=== PATIENT | female | born 1940 | race Caucasian/White ===

== ENCOUNTER → 2019-04-18 10:27 | Outpatient (CLI) | payer BC, SELFPAY ==
--- NOTE | ~2019-04-18 | MM_ITS ---
EXAMINATION: MM screening amisha BI w joesph HISTORY: Screening mammogram TECHNIQUE: Craniocaudal and mediolateral oblique 3-D tomosynthesis images were obtained and synthetic 2-D images were generated. CAD analysis was submitted and interpreted. COMPARISON: 11/19/2017, 03/28/2016 bilateral digital screening mammogram examinations BREAST PARENCHYMAL COMPOSITION: The breasts are heterogeneously dense, which may obscure small masses . FINDINGS: There is no evidence of suspicious mass, calcification, or architectural distortion to sugg est malignancy in either breast. There has been no suspicious interval change. IMPRESSION: 1. No mammographic evidence of malignancy. 2. Recommend routine screening mammography in one year. BI-RADS Category 1: Negative Reviewed, dictated and finalized at location A. L STRUCTURE OPERATOR
== END ==
PROVIDERS: PCP Family Medicine; Visit Provider Nurse Practitioner Family
DX: Z12.31 Encounter for screening mammogram for malignant neoplasm of breast (principal)
CPT/HCPCS: 77063; 77067

== ENCOUNTER 2020-03-22 11:47 | Outpatient (CLI) | payer BC, SELFPAY ==
--- NOTE | ~2020-03-22 | XR_ITS ---
EXAMINATION: XR knee LT 3V DATE: 03/22/2020 12:44 INDICATION: Left knee edema. Arthritis. TECHNIQUE: 3 views of left knee were obtained. COMPARISON: Left knee radiographs 12/30/17 FINDINGS: Bone alignment is normal. No fracture. There is severe osteoarthritis of medial compartment , mild osteoarthritis of lateral compartment, and moderate osteoarthritis of patellofemoral compartme nt. There is a small knee joint effusion. IMPRESSION: 1. Severe left knee osteoarthritis. 2. Small left knee joint effusion. Reviewed, dictated and finalized at location A. L INSTALLER
--- NOTE | ~2020-03-22 | US_ITS ---
EXAMINATION: US venous doppler [facility] EXAM DATE: 03/22/2020 12:27 INDICATION: Left leg edema. TECHNIQUE: Multiple grayscale, color flow and Doppler images of the left lower extremity deep venous system were obtained and reviewed. Comparison is made to prior examination from 05/27/2012. FINDINGS: The left common femoral, femoral and profunda veins demonstrate normal color flow, respirat ory variation, augmentation and compressibility. Compressibility, color flow confirmed within the le ft popliteal, posterior tibial, peroneal, and greater saphenous veins. IMPRESSION: 1. No left lower extremity deep venous thrombosis. Reviewed, dictated and finalized at location B. S MARKETING MANAGER
== END 2020-03-22 11:48 | disposition home or self-care (01) ==
PROVIDERS: PCP Family Medicine; Visit Provider Family Medicine
DX: R60.0 Localized edema (principal); M17.12 Unilateral primary osteoarthritis, left knee; M25.462 Effusion, left knee
CPT/HCPCS: 73562; 93971

== ENCOUNTER → 2021-08-29 11:14 | Outpatient (CLI) | payer BC, SELFPAY ==
--- NOTE | ~2021-08-29 | DEXA_ITS ---
Bone Density Report Name: TREMAINE ARMANDO Age: 81 Sex: Female Ethnicity: White Date of : 1940 Indication: postmenopausal; screening for osteoporosis; height loss; Referring Provider: CHAIM LUNA Study: Bone densitometry was performed. Exam Date: August 29, 2021 Accession number: [id number] Bone Density: Region BMD T-score Z-score Classification AP Spine (L1, L2, L3) 0.988 -0.3 2.3 Normal Femoral Neck (Left) 0.675 -1.6 0.7 Osteopenia Total Hip (Left) 0.823 -1.0 1.1 Normal World Health Organization criteria for BMD impression classify patients as: Normal (T-score at or above -1.0), Osteopenia (T-score between -1.0 and -2.5), or Osteoporosis (T-score at or below -2.5). 10-year Fracture Risk(1): Major Osteoporotic Fracture 13% Hip Fracture 3.1% Reported Risk Factors: [place] (), Neck BMD=0.675, BMI=31.2 (1) FRAX(R) Version 3.08. Fracture probability calculated for an untreated patient. Fracture probability may be lower if the patient has received treatment. Previous Exams: Region Exam Age BMD T-score BMD Change BMD Change Date g/cm2 vs Baseline vs Previous AP Spine(L1, L2, L3) 08/29/2021 81 0.988 -0.3 -0.019 0.020 11/19/2017 77 0.968 -0.5 -0.040* -0.040* 07/26/2014 74 1.008 -0.1 Total Hip(Left) 08/29/2021 81 0.823 -1.0 -0.058* -0.010 11/19/2017 77 0.832 -0.9 -0.048* -0.048* 07/26/2014 74 0.880 -0.5 *Denotes significance at 95% confidence level, LSC for AP Spine = 0.022 g/cm2, LSC for Total Hip = 0.027 g/cm2 Clinical Information Provided by Patient: Has used the following medications: Vitamin D, Calcium Patient maximum height was 63.5 Menopause Age: 53 No regular weight bearing exercise Onset of menses at age 17 Number of children 1 Impression: The patient has low bone mass, based on the Left Femoral Neck T-score. The patient has an estimated ten-year risk of hip fracture of 3.1% and an estimated ten-year risk of major fracture of 13%, based on the WHO FRAX algorithm. No significant bone loss was observed. Discussion: BONE DENSITY IS LOW AT ONE OR MORE SKELETAL SITES. THE PATIENT'S BMD AND CLINICAL RISK FACTORS CONTRIBUTE TO THIS PATIENT'S INCREASED RISK OF FRACTURE. This patient's lowest T-score is low at one or more skeletal sites. It meets the World Health Organization's (WHO) criteria for ?low bone mass? (T-score between -1.0 and -2.5). The patient's 10-year risk of hip fracture as calculated by
== END ==
PROVIDERS: PCP Family Medicine; Visit Provider Family Medicine
DX: Z78.0 Asymptomatic menopausal state (principal); M85.852 Other specified disorders of bone density and structure, left thigh
CPT/HCPCS: 77080

== ENCOUNTER → 2021-09-26 16:13 | Outpatient (CLI) | payer BC, SELFPAY ==
--- NOTE | ~2021-09-26 | MM_ITS ---
EXAMINATION: MM screening amisha BI w joesph HISTORY: Screening TECHNIQUE: Craniocaudal and mediolateral oblique 3-D tomosynthesis images were obtained and synthetic 2-D images were generated. CAD analysis was submitted and interpreted. COMPARISON: Comparison to multiple prior studies sequentially, with oldest reviewed study dated 01/08. BREAST PARENCHYMAL COMPOSITION: The breasts are heterogeneously dense, which may obscure small masses . FINDINGS: There is a new focal asymmetry is posterior to the nipple on CC view, not well demonstrated on MLO view. The left breast is stable without evidence for malignancy. IMPRESSION: 1. Developing right breast asymmetry. 2. Additional mammographic views and possible breast ultrasound are recommended. BI-RADS Category 0: Incomplete: Needs additional imaging evaluation. Reviewed, dictated and finalized at location A. IMPRESSION: 1. Developing right breast asymmetry. 2. Additional mammographic views and possible breast ultrasound are recommended . BI-RADS Category 0: Incomplete: Needs additional imaging evaluation.
== END ==
PROVIDERS: PCP Family Medicine; Visit Provider Family Medicine
DX: Z12.31 Encounter for screening mammogram for malignant neoplasm of breast (principal); R92.8 Other abnormal and inconclusive findings on diagnostic imaging of breast
CPT/HCPCS: 77063; 77067

== ENCOUNTER 2021-10-08 12:54 | Outpatient (CLI) | payer BC, SELFPAY ==
--- NOTE | ~2021-10-08 | MMUS_ITS ---
EXAMINATION: MM diagnostic amisha RT w joesph, US breast RT complete HISTORY: Follow-up right breast asymmetry TECHNIQUE: Additional 3-D tomosynthesis images of the right breast were performed and synthetic 2-D i mages were generated. CAD analysis was submitted and interpreted. High resolution complete right r[facility] st ultrasound was performed. COMPARISON: 09/26/2021 BREAST PARENCHYMAL COMPOSITION: The breasts are heterogenously dense, which may obscure small masses FINDINGS: MAMMOGRAPHIC FINDINGS: There are no suspicious masses, calcifications or architectural distortion in the right breast to sug gest malignancy. ULTRASOUND: Complete US of all 4 quadrants of the right breast and retroareolar region was reviewed. Normal heter ogeneous echotexture without focal solid or cystic mass. IMPRESSION: 1. No evidence for malignancy in the right breast. 2. Routine yearly screening mammogram and regular clinical breast examination are recommended. BI-RADS Category 1: Negative Reviewed, dictated and finalized at location A. IMPRESSION: 1. No evidence for malignancy in the right breast. 2. Routine yearly screening mammogram and regular clinical breast examination a re recommended. BI-RADS Category 1: Negative
== END 2021-10-08 12:55 | disposition home or self-care (01) ==
PROVIDERS: PCP Family Medicine; Visit Provider Physician Assistant
DX: R92.8 Other abnormal and inconclusive findings on diagnostic imaging of breast (principal)
CPT/HCPCS: 76641; 77061; 77065; G0279

== ENCOUNTER 2022-04-10 09:27 | Outpatient (CLI) | payer BC, SELFPAY ==
--- NOTE | ~2022-04-10 | NM_ITS ---
EXAMINATION: NM yannick stress w perfusion DATE: 04/10/2022 11:58 INDICATION: Other forms of dyspnea TECHNIQUE: Rest images were obtained following intravenous administration of 9.0 mCi Tc99m tetrofosmi n (Myoview). The patient was infused intravenously with Lexiscan (Regadenoson). Then, 28.8 mCi Tc99m tetrofosmin (Myoview) was administered intravenously, and stress images were obtained. Data was recon structed into short axis and horizontal and vertical long axis SPECT images. Gated SPECT images were also obtained. COMPARISON: None. FINDINGS: There is no definite reversible or fixed perfusion abnormality to suggest ischemia or infar ction. There is normal left ventricular chamber size, wall motion and ejection fraction. Left ventr icular ejection fraction measures >70%. IMPRESSION: 1. Normal myocardial perfusion at rest and during stress. 2. Left ventricular ejection fraction measuring >70%. Reviewed, dictated and finalized at location A. LE SCM CONSULTANT
--- NOTE | 2022-04-10 10:19 | EST_ITS ---
Patient Info Name: Amanda Cortes Age: 81 years : 1940 Gender: Female Ht: 52 in Wt: 170 lbs BSA: 1.74 m2 HR: 59 bpm BP: 177 / 81 mmHg Heart Rhythm: Sinus Rhythm Exam Date: 04/10/2022 10:40 AM Exam Location: [facility] Stress Patient Status: Outpatient Admit Date: 04/10/2022 Staff Ordering Physician: Cosme Og DO Attending Provider: Cosme Og DO Exercise Technologist: Urmila Shaw CT Exam Type: CA stress yannick w NM Study Info Indications Z01.810 - Encounter for preprocedural cardiovascular examination R06.09 - Other forms of dyspnea A regadenoson stress test was performed. Summary 1. 1. Negative lexiscan stress test for ischemic ST changes by ECG criteria. 2. 2. Baseline hypertension. 3. 3. Nuclear scan to follow and will be reported separately. Please correlate with it. 4. 4. Patient informed of the above results. Protocol: Lexiscan Stress ECG Details Stage: REST Duration (min): 2 min : 11 sec HR (bpm): 57 SBP (mmHg): 177 DBP (mmHg): 86 Stage: REST Duration (min): 8 min : 35 sec HR (bpm): 62 SBP (mmHg): 177 DBP (mmHg): 86 Stage: STAGE 1 Duration (min): 1 min : 0 sec HR (bpm): 81 SBP (mmHg): 177 DBP (mmHg): 86 Stage: RECOVERY Duration (min): 1 min : 0 sec HR (bpm): 94 SBP (mmHg): 174 DBP (mmHg): 66 Stage: RECOVERY Duration (min): 2 min : 0 sec HR (bpm): 79 SBP (mmHg): 174 DBP (mmHg): 66 Stage: RECOVERY Duration (min): 3 min : 0 sec HR (bpm): 78 SBP (mmHg): 174 DBP (mmHg): 66 Stage: RECOVERY Duration (min): 3 min : 30 sec HR (bpm): 76 SBP (mmHg): 169 DBP (mmHg): 65 Rest HR: 62 bpm Peak HR: 97 bpm Rest Sys BP: 177 mmHg Peak Sys BP: 174 mmHg Max Pred HR: 140 bpm % Max Pred HR: 69 % Target HR: 119 bpm Max RPP: 16,878 bpm*mmHg Termination Reason: Completed protocol Cardiac Symptoms: Shortness of breath Total Time: 1 min : 0 sec Rest Gonzalez BP: 86 mmHg Peak Gonzalez BP: 66 mmHg Total Dose: 0.4 mg Resting ECG Sinus rhythm, borderline T wave in high lateral leads. Stress ECG No ST changes. Arrhythmias None. Report Signatures
== END 2022-04-10 09:28 | disposition home or self-care (01) ==
PROVIDERS: PCP Family Medicine; Visit Provider Internal Medicine Cardiovascular Disease
DX: R06.09 Other forms of dyspnea (principal)
CPT/HCPCS: 78452; 93017; A9502; J2785

== ENCOUNTER 2022-07-10 11:07 | Outpatient (CLI) | payer BC, SELFPAY ==
--- NOTE | ~2022-07-10 | US_ITS ---
EXAMINATION: US venous doppler [facility] DATE: 07/10/2022 11:42 INDICATION: Left lower limb edema. TECHNIQUE: Grayscale ultrasound images without and with compression and Doppler ultrasound images of the left lower extremity veins were obtained. COMPARISON: Ultrasound 03/22/2020 FINDINGS: The visualized portions of left common femoral vein, profunda (deep) femoral vein, femoral vein, popl iteal vein, peroneal veins, posterior tibial veins, and greater saphenous vein outflow are patent. IMPRESSION: 1. No deep venous thrombosis. Reviewed, dictated and finalized at location A.
== END 2022-07-10 11:08 | disposition home or self-care (01) ==
PROVIDERS: PCP Family Medicine; Visit Provider Internal Medicine Cardiovascular Disease
DX: R60.0 Localized edema (principal)
CPT/HCPCS: 93971

== ENCOUNTER 2022-11-21 01:22 | Day surgery (SDC) | payer BC, SELFPAY ==
[2022-11-13 10:07] VITALS: BMI 31.2
--- NOTE | 2022-11-21 11:07 | WPDANESEPPF ---
Anes - Initial Pre Proc Eval Procedure: Operation Date: 11/21/22 13:30 Proposed Procedures p Colonoscopy - Lg Chung MD Date/Time: 11/21/22 11:07 Surgeon: Lg Chung MD Pre Op Diagnosis: other fecal abnormalities Patient Data Age: 82 Gender: F Height: 1.57 m Weight: 77.5 kg Allergies Allergy/AdvReac Type Severity Reaction Status Date / Time No Known Allergies Allergy Verified 11/21/22 12:13 Home Medications Medication Instructions Recorded Confirmed Type omega-3 fatty acids 1,000 mg 1,000 mg PO DAILY 04/18/19 11/13/22 History capsule (Fish Oil Concentrate) lisinopril 20 mg tablet 20 mg PO DAILY #90 tabs 03/21/22 11/13/22 Rx allopurinol 300 mg tablet 300 mg PO DAILY #90 tabs 10/15/22 11/13/22 Rx cholecalciferol (vitamin D3) 1,250 1,250 mcg PO WEEKLY #14 caps 10/15/22 11/13/22 Rx mcg (50,000 unit) capsule alendronate 70 mg tablet 70 mg PO WEEKLY 11/13/22 11/13/22 History rosuvastatin 10 mg tablet 10 mg PO DAILY 11/13/22 11/13/22 History Patient hx anesthesia problems: none Family hx anesthesia problems: none Results Review: All pre-operative results and documents have been reviewed as part of the pre-operative evaluation. 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 Low vitamin D level Mixed hyperlipidemia Surgical History Surgical History S/P total hip arthroplasty Family History Family History Mother Family history of Alzheimer's disease, Onset Age: 70 Patient's mother is Father Patient's father is Sibling Patient's brother is in good health Social History Social History Social History: Smoking status: Never smoker Second hand tobacco smoke exposure: No Alcohol intake: never Alcohol use details: rarely Substance use: never Substance use type: does not use Living arrangements: alone Occupation/Education: retired Gender identity (if verbalized by the patient): Female Sexual Orientation (if Verbalized by the Patient): Straight or Heterosexual Spiritual care concerns: No Anes - Eval Final PreProcedure Day of Procedure 11/21/22 11:07 Patient weight: obese Heart: regular rate and rhythm Lungs: clear to auscultation Airway: Mallampati scale class II Neurological: alert and oriented Last oral intake: >/= 8 hours ASA classification: III Emergent: no Anesthetic plan: proceed Anesthesia type and monitoring: general GIVS and standard monitoring Results Review: All pre-operative results and documents have been reviewed as part of the pre-operative evaluation. Informed Consent: The patient's anesthetic plan and its attendant risks and benefits were discussed with the patient/family/POA. Questions were solicited and answers provided to the satisfaction of the patient/family/POA.
[2022-11-21 12:16] VITALS: BP 156/84; PULSE 78; RESP 18; TEMP 36.1; O2SAT 98
[2022-11-21] MEDS: LACTATED RINGERS 1,000 ML 150 ML IV CONT (12:40)
--- NOTE | 2022-11-21 13:09 | PM.HPGS ---
History of Present Illness History of Present Illness Consent: Risks, benefits, and alternatives have been discussed and questions answered. Patient agrees to proceed with procedure. Chief complaint: other fecal abnormalities Narrative: Amanda Cortes is a 82 year old female here because + cologuard, had colonoscopy 10 years ago Review of Systems Constitutional: Constitutional: Denies headache(s) and Denies weakness Eyes: Eyes: Denies blurry vision ENT: Reports Normal hearing present, Denies headache(s) and Denies neck pain Cardiovascular: Cardiovascular: Denies chest pain and Denies dyspnea Respiratory: Respiratory: Denies dyspnea Gastrointestinal: Gastrointestinal: Reports no additional gastrointestinal complaints Genitourinary: Genitourinary: Denies dysuria Musculoskeletal: Musculoskeletal: Denies neck pain Integumentary/Breasts: Skin/Breast: Denies dry skin Neurologic: Reports Normal hearing present, Denies headache(s) and Denies weakness Psychiatric: Psychiatric: Denies anxiety Endocrine: Endocrine: Denies change in body appearance Hematologic/Lymphatic: Hematologic/Lymphatic: Denies easy bleeding Allergic/Immunologic: Allergic/Immunologic: Denies urticaria PMFSH Past Medical History Medical History (Updated 11/11/22 @ 07:22 by Francesca Pope MD) Benign essential HTN 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 Low vitamin D level Mixed hyperlipidemia Surgical History Surgical History S/P total hip arthroplasty Family History Family History Mother Family history of Alzheimer's disease, Onset Age: 70 Patient's mother is Father Patient's father is Sibling Patient's brother is in good health Social History Social History Social History: Smoking status: Never smoker Second hand tobacco smoke exposure: No Alcohol intake: never Alcohol use details: rarely Substance use: never Substance use type: does not use Living arrangements: alone Occupation/Education: retired Gender identity (if verbalized by the patient): Female Sexual Orientation (if Verbalized by the Patient): Straight or Heterosexual Spiritual care concerns: No Meds Home Medications and Allergies Home Medications Medication Instructions Recorded Confirmed Type omega-3 fatty acids 1,000 mg 1,000 mg PO DAILY 04/18/19 11/13/22 History capsule (Fish Oil Concentrate) lisinopril 20 mg tablet 20 mg PO DAILY #90 tabs 03/21/22 11/13/22 Rx allopurinol 300 mg tablet 300 mg PO DAILY #90 tabs 10/15/22 11/13/22 Rx cholecalciferol (vitamin D3) 1,250 1,250 mcg PO WEEKLY #14 caps 10/15/22 11/13/22 Rx mcg (50,000 unit) capsule alendronate 70 mg tablet 70 mg PO WEEKLY 11/13/22 11/13/22 History rosuvastatin 10 mg tablet 10 mg PO DAILY 11/13/22 11/13/22 History Allergies Allergy/AdvReac Type Severity Reaction Status Date / Time No Known Allergies Allergy Verified 11/21/22 12:13 Vital Signs Vital Signs - 24 hr 11/21/22 12:16 Temperature 97 F L Pulse Rate 78 Respiratory Rate 18 Blood Pressure 156/84 H Pulse Oximetry 98 Oxygen Delivery Room Air Exam Const: General: comfortable and no acute distress HENMT: Face/Nose/Sinus: Normal nares present Eyes: General: appearance normal, both eyes and all related structures Neck: Neck: no JVD Resp: Auscultation: clear to auscultation bilaterally Cardio: Rate: regular rate Rhythm: regular rhythm GI: Inspection: non-distended GI Palp: Yes Soft to palpation Skin: General skin exam: normal color Neuro: General: gait normal Speech: normal speech Extrem: General: normal to inspection Psych: Mental Status: mental status grossly normal Assessment and Plan Assessment and plan (1) Positive colorectal cancer screening u
[2022-11-21 13:28] VITALS: BP 109/48; PULSE 65; RESP 18; O2SAT 98
[2022-11-21 13:38] VITALS: BP 115/51; PULSE 61; RESP 18; O2SAT 96
[2022-11-21 13:45] VITALS: BP 128/55; PULSE 57; RESP 18; O2SAT 98
== END 2022-11-21 14:04 | disposition home or self-care (01) ==
PROVIDERS: PCP Family Medicine; Visit Provider Internal Medicine Gastroenterology
PROC: 0DJD8ZZ Inspection of Lower Intestinal Tract, Via Natural or Artificial Opening Endoscopic (ICD-10-PCS; CPT 45378; principal; 2022-11-21 13:30)
DX: R19.5 Other fecal abnormalities (principal); D12.0 Benign neoplasm of cecum; K57.30 Diverticulosis of large intestine without perforation or abscess without bleeding; I10 Essential (primary) hypertension; E78.2 Mixed hyperlipidemia; E55.9 Vitamin D deficiency, unspecified; E66.9 Obesity, unspecified; Z68.32 Body mass index [BMI] 32.0-32.9, adult
CPT/HCPCS: 45385; 88305; J2704; J7120

== ENCOUNTER 2023-03-13 14:39 | Outpatient (CLI) | payer BC, SELFPAY ==
--- NOTE | ~2023-03-13 | XR_ITS ---
XR hip RT min 2V DATE: 03/13/2023 14:52 INDICATION: Fall. TECHNIQUE: AP and lateral views COMPARISON: None FINDINGS: Status post right total hip arthroplasty. No fracture or dislocation, periosteal reaction or bone destruction. The pubic symphysis and sacroiliac joints are intact. Severe degenerative disc disease at L5-S1. IMPRESSION: Status post right total hip arthroplasty Reviewed, dictated and finalized at location B. NATING MACHINE OPERATOR HELPER
== END 2023-03-13 14:40 | disposition home or self-care (01) ==
PROVIDERS: PCP Family Medicine; Visit Provider Physician Assistant
DX: M25.551 Pain in right hip (principal)
CPT/HCPCS: 73502

== ENCOUNTER 2024-05-16 12:08 | Emergency (ER) | payer BC, SELFPAY ==
[2024-05-16 12:33] VITALS: BP 172/57; PULSE 58; RESP 16; TEMP 36.4; O2SAT 100
--- NOTE | 2024-05-16 12:59 | ED.WOUNDLAC ---
HPI - Wound/Laceration General Chief Complaint: Wound/Laceration Stated Complaint: Cat Scratch Time Seen by Provider: 05/16/24 13:00 Source: patient, RN notes reviewed and old records reviewed Mode of arrival: ambulatory Limitations: no limitations History of Present Illness HPI narrative: Patient presents with complaints of laceration to the right hand. She reports an injury happened this morning while she was playing with her cat. She states that he accidentally bit her. She states he is up-to-date on vaccines. She is unsure when her last tetanus shot was. She denies other injury and trauma. She does report that she wash the wound at the time of injury. She has bleeding controlled with a Band-Aid on arrival. Related Data Home Medications ?Medication ?Instructions ?Recorded ?Confirmed ?Last Taken ?Type omega-3 fatty acids 1,000 mg 2,000 mg PO DAILY 08/14/23 02/12/24 Unknown History capsule (Fish Oil Concentrate) Allergies Allergy/AdvReac Type Severity Reaction Status Date / Time No Known Allergies Allergy Verified 05/16/24 12:30 Review of Systems Review of Systems: All systems reviewed & are unremarkable except as noted in HPI and below Constitutional: Constitutional: Reports no additional constitutional complaints ENT: Reports system reviewed and no additional complaints, except as documented Cardiovascular: Cardiovascular: Reports no additional cardiovascular complaints Respiratory: Respiratory: Reports no additional respiratory complaints Gastrointestinal: Gastrointestinal: Reports no additional gastrointestinal complaints Integumentary/Breasts: Skin/Breast: Reports system reviewed and no additional complaints, except as docu and Reports as per HPI [facility] Past Medical History Medical History (Updated 05/16/24 @ 13:19 by Anastasiia Mcfadden APRN) Low vitamin D level 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 Mixed hyperlipidemia Benign essential HTN Surgical History Surgical History S/P total hip arthroplasty Family History Family History Mother Family history of Alzheimer's disease, Onset Age: 70 Patient's mother is Father Patient's father is Sibling Patient's brother is in good health Social History Social History Social History: Smoking status: Never smoker Second hand tobacco smoke exposure: No Alcohol intake: never Alcohol use details: rarely Substance use: never Substance use type: does not use Do You Feel Safe in your Home?: Yes Lack of Transportation: No Lack of Food: Never True Current Housing: I Have Housing Concerned About Future Housing: No Difficulty Paying Gas/Electric Bills: No Difficulty Paying for Meds: No Currently Unemployed: YES Education: Don't Know Difficulty w/ Childcare or Family Care: No Living arrangements: alone Occupation/Education: retired Gender identity (if verbalized by the patient): Female Sexual Orientation (if Verbalized by the Patient): Straight or Heterosexual Spiritual care concerns: No Comments At the time of my signature, I reviewed and agree with the nursing past medical, surgical, social, and family history. There is no relevant family history pertinent to the patient complaint. Exam Const: General: cooperative, no acute distress, alert and awake Orientation/consciousness: oriented to person, oriented to place and oriented to time HENMT: Head: normal to inspection Resp: Effort & Inspection: normal respiratory effort and able to speak in complete sentences Auscultation: clear to auscultation bilaterally, no crackles, no rales, no rhonchi and no wheezes Cardio: Palpation: normal PMI Rate: regular rate Rhythm: regular rhythm Heart sounds: S1 normal heart sound present and S2 normal heart sound present Skin: Trauma: laceration right dorsal hand linear, contaminated, superficial, motor nerve function intact and sensation intact Other: 1cm wound dorsal right hand Neuro: General: oriented to person, oriented to place and oriented to time Cranial nerves: Yes CN's II-XII intact bilaterally Psych: Appearance: grossly normal Thought process: Normal thought process present Insight: Good insight present (Psych) Judgement: Good judgement present (Psych) Course Course Level of Care: Express Care Visit Vital Signs Vital signs: Vital Signs Temperature 97.5 F L 05/16/24 12:33 Pulse Rate 58 L 05/16/24 12:33 Respiratory Rate 16 05/16/24 12:33 Blood Pressure 172/57 H 05/16/24 12:33 Pulse Oximetry 100 05/16/24 12:33 Oxygen Delivery Room Air 05/16/24 12:33 Temperature 97.5 F L 05/16/24 12:33 Pulse Rate 67 05/16/24 13:33 Respiratory Rate 16 05/16/24 13:33 Blood Pressure 144/62 H 05/16/24 13:33 Pulse Oximetry 100 05/16/24 12:33 Oxygen Delivery Room Air 05/16/24 12:33 Reviewed MDM - Wound/Laceration MDM Narrative Medical decision making narrative: Wound due to cat bite irrigated extensively. Patient tolerated well. Wound not closed due to mechanism. Site dressed, tetanus updated. Start Augmentin. Emergency department precautions discussed. Discharge instructions reviewed with patient, as well as provided in writing per nursing staff. The instructions also include specific and strict return/GO TO THE ER as well as f/u information. All questions have been answered, and the patient deny any further questions with discharge and discharge plan. Some parts of this dictation were generated by voice recognition software and may contain typographical and/or grammatical inaccuracies. Differential Diagnosis Differential diagnosis: Likely laceration and avulsion of skin Medical Records Attestation: I reviewed the patient's medical records. Discharge Plan Discharge Clinical Impression: Animal bite Patient Disposition: Home, Self-Care Condition: Stable Instructions: Antibiotic Form, Animal Bite (ED) Additional Instructions: Take medication as prescribed. Follow with primary care provider for wound check. Emergency department for new or worse symptoms Patient Language: Italian Prescriptions: New amoxicillin-pot clavulanate 875-125 mg tablet 1 tablet PO Q12H Qty: 14 0RF No Action omega-3 fatty acids [Fish Oil Concentrate] 1,000 mg capsule 2,000 mg PO DAILY amlodipine 5 mg tablet 5 mg PO DAILY Qty: 30 5RF allopurinol 300 mg tablet 300 mg PO DAILY Qty: 90 1RF ergocalciferol (vitamin D2) 1,250 mcg (50,000 unit) capsule See Rx Instructions .ROUTE .COMPLEX Qty: 14 1RF Dose Instruction: TAKE 1 CAPSULE (1250 MCG) ORALLY ONCE WEEKLY Rx Instructions: TAKE 1 CAPSULE (1250 MCG) ORALLY ONCE WEEKLY rosuvastatin 10 mg tablet See Rx Instructions .ROUTE .COMPLEX Qty: 90 2RF Dose Instruction: 10 MG ORALLY DAILY; TABLET 1 TABLET (10 MG) BY MOUTH DAILY Rx Instructions: 10 MG ORALLY DAILY; TABLET 1 TABLET (10 MG) BY MOUTH DAILY alendronate 70 mg tablet See Rx Instructions .ROUTE .COMPLEX Qty: 14 1RF Dose Instruction: TAKE ONE TABLET BY MOUTH WEEKLY Rx Instructions: TAKE ONE TABLET BY MOUTH WEEKLY lisinopril 40 mg tablet See Rx Instructions .ROUTE .COMPLEX Qty: 90 1RF Dose Instruction: TAKE ONE TABLET (40 MG) BY MOUTH DAILY Rx Instructions: TAKE ONE TABLET (40 MG) BY MOUTH DAILY Follow-up/Referrals: Andrew Shah MD [Primary Care Provider] - 1 Week
[2024-05-16 13:33] VITALS: BP 144/62; PULSE 67; RESP 16
== END 2024-05-16 13:35 | disposition home or self-care (01) ==
PROVIDERS: Emergency Provider Nurse Practitioner Family; PCP Family Medicine
DX: S61.411A Laceration without foreign body of right hand, initial encounter (principal); W55.01XA Bitten by cat, initial encounter; I10 Essential (primary) hypertension; E78.2 Mixed hyperlipidemia; E55.9 Vitamin D deficiency, unspecified
CPT/HCPCS: 99213; G0463

== ENCOUNTER 2025-02-03 09:50 | Outpatient (CLI) | payer BC, SELFPAY ==
--- NOTE | ~2025-02-03 | DEXA_ITS ---
Bone Density Report Name: TREMAINE ARMANDO Age: 84 Sex: Female Ethnicity: White Date of : 1940 Indication: postmenopausal; screening for osteoporosis; Referring Provider: SONU DÍAZ Study: Bone densitometry was performed. Exam Date: February 03, 2025 Accession number: [id number] Bone Density: Region BMD T-score Z-score Classification AP Spine(L1-L4) 1.152 1.0 3.8 Normal Femoral Neck (Left) 0.741 -1.0 1.5 Normal Total Hip (Left) 0.863 -0.6 1.6 Normal World Health Organization criteria for BMD impression classify patients as: Normal (T-score at or above -1.0), Osteopenia (T-score between -1.0 and -2.5), or Osteoporosis (T-score at or below -2.5). 10-year Fracture Risk: FRAX not reported because: All T-scores for Spine Total, Hip Total, Femoral Neck at or above -1.0 Impression: The patient has normal bone mass. Discussion: BONE DENSITY IS ABOVE THE MINIMUM DESIRABLE LEVEL AT ALL SKELETAL SITES TESTED. This patient?s bone mineral density is above the minimum desirable level (T-score -1.0 or better) at all sites measured. The patient should follow a healthful lifestyle (good nutrition with adequate calcium and vitamin D, and appropriate weight-bearing exercise). Follow-Up: Consider repeating this study in 5 years or sooner if there is some new clinical indication. Reported by: ROSI on 02/03/2025 10:58:00 AM. Reviewed, dictated and finalized at location A.
--- NOTE | ~2025-02-03 | MM_ITS ---
EXAMINATION: MM screening amisha BI w joesph HISTORY: Screening. TECHNIQUE: Craniocaudal and mediolateral oblique 3-D tomosynthesis images were obtained and synthetic 2-D images were generated. CAD analysis was submitted and interpreted. COMPARISON: Studies dating back to 2019 BREAST PARENCHYMAL COMPOSITION: Dense: The breast tissue is heterogeneously dense, which may obscure small masses. FINDINGS: No suspicious masses are seen. There are no suspicious calcifications. No unexplained architectural distortion is seen. There are no skin or nipple abnormalities identified. There is no adenopathy seen on the images submitted. IMPRESSION: No mammographic evidence to suggest malignancy is seen. The patient may return to screening mammography as per ACR guidelines. BI-RADS: 1 - Negative. Reviewed, dictated and finalized at location A. ING ADMIN
== END 2025-02-03 09:51 | disposition home or self-care (01) ==
LOC: ANHFOHIMG 09:57
PROVIDERS: PCP Family Medicine; Visit Provider Family Medicine
DX: Z12.31 Encounter for screening mammogram for malignant neoplasm of breast (principal); Z78.0 Asymptomatic menopausal state
CPT/HCPCS: 77063; 77067; 77080